=== PATIENT | female | born 1975 ===

== ENCOUNTER 2017-04-20 02:35 | Emergency (ER) | payer MEDICAID, OTHER ==
[2017-04-20 02:36] VITALS: BMI 20.3
[2017-04-20 02:47] VITALS: RESP 16
[2017-04-20] MEDS ORDERED: Sodium Chloride 0.9% 1,000 ML IV ONE ×2 (02:56→04:24)
[2017-04-20] MEDS ORDERED: Sodium Chloride 0.9% 1,000 ML ONE ×2 (03:08→04:25)
--- NOTE | 2017-04-20 03:15 | C.PDOC ---
Time Seen by Provider: 04/20/17 02:51 Chief Complaint (Nursing): GI Problem Past Medical History Vital Signs: Last Vital Signs Temp 98.7 F 04/20/17 02:43 Pulse 53 L 04/20/17 02:43 Resp 16 04/20/17 02:43 BP 107/69 04/20/17 02:43 Pulse Ox 97 04/20/17 02:43 - Medical History PMH: Denies: Diabetes, Hepatitis, HIV, HTN, Seizures, Sexually Transmitted Disease Surgical History: - [facility] DETOXIFICATION SERVICES FOR SUBSTANCE ABUSE TREATMENT (12/25/16) PRESSURE DRESSING APPLIC (10/25/13) REPAIR OB LACERATION NEC (02/07/98) VACUUM EXTRACT DEL NEC (02/07/98) Family History: States: Unknown Family Hx - Social History Hx Tobacco Use: Yes (1 pack a day) Hx Alcohol Use: No Hx Substance Use: Yes (heroin, oxy) - Immunization History Hx Tetanus Toxoid Vaccination: No Hx Influenza Vaccination: No Hx Pneumococcal Vaccination: No ED Course And Treatment O2 Sat by Pulse Oximetry: 97
--- NOTE | 2017-04-20 03:18 | C.PDOC ---
History Of Present Illness Patient is a 42 year old female who presents to the ER with a complaint of vomiting, diarrhea and abdominal pain for the past 3 days. Patient reports that today she feels weak and dehydrated, which prompted her to come in. Patient denies fever. Time Seen by Provider: 04/20/17 02:51 Chief Complaint (Nursing): GI Problem History Per: Patient History/Exam Limitations: no limitations Onset/Duration Of Symptoms: Days (3) Current Symptoms Are (Timing): Still Present Location Of Pain/Discomfort: Diffuse Radiation Of Pain To:: None Associated Symptoms: Vomiting, Diarrhea. denies: Fever Exacerbating Factors: None Alleviating Factors: None Recent travel outside of the [place]: No Abnormal Vaginal Bleeding: No Past Medical History Reviewed: Historical Data, Nursing Documentation, Vital Signs Vital Signs: Last Vital Signs Temp 98.3 F 04/20/17 05:32 Pulse 50 L 04/20/17 05:32 Resp 16 04/20/17 05:32 BP 129/78 04/20/17 05:32 Pulse Ox 100 04/20/17 05:32 - Medical History PMH: No Chronic Diseases Surgical History: - [facility] DETOXIFICATION SERVICES FOR SUBSTANCE ABUSE TREATMENT (12/25/16) PRESSURE DRESSING APPLIC (10/25/13) REPAIR OB LACERATION NEC (02/07/98) VACUUM EXTRACT DEL NEC (02/07/98) Family History: States: Unknown Family Hx - Social History Hx Tobacco Use: Yes (1 pack a day) Hx Alcohol Use: No Hx Substance Use: Yes (heroin, oxy) - Immunization History Hx Tetanus Toxoid Vaccination: No Hx Influenza Vaccination: No Hx Pneumococcal Vaccination: No Review Of Systems Constitutional: Negative for: Fever Gastrointestinal: Positive for: Vomiting, Abdominal Pain, Diarrhea Neurological: Positive for: Weakness Physical Exam - Physical Exam Appears: Non-toxic, No Acute Distress, Unkempt Skin: Normal Color, Warm, Dry Head: Atraumatic, Normacephalic Eye(s): bilateral: Normal Inspection, EOMI Oral Mucosa: Moist Neck: Normal ROM Chest: Symmetrical, No Tenderness Cardiovascular: Rhythm Regular, No Murmur Respiratory: Normal Breath Sounds, No Rales, No Rhonchi, No Wheezing Gastrointestinal/Abdominal: Soft, Tenderness (Generalized) Back: Normal Inspection, No Decreased ROM Extremity: Normal ROM, No Deformity, No Swelling Neurological/Psych: Oriented x3, Normal Speech, Other (No focal deficits) ED Course And Treatment - Laboratory Results Result Diagrams: 04/20/17 03:20 04/20/17 03:20 O2 Sat by Pulse Oximetry: 97 (Room air) Pulse Ox Interpretation: Normal Medical Decision Making Medical Decision Making: Impression: 42 year old female with abdominal pain, vomiting and diarrhea. Patient is unkempt, no alcohol on breath. Prior records show history of benzo and opiate abuse, possible withdrawal sx Plan: * Blood work * Urinalysis * Pepcid * Zofran * IV fluids progress: Labs reviewed showing mild hypokalemia, KCL ordered Pt reevaluated and states she continues to feel tired and nauseous. Additional IVF and Reglan ordered Patient resting comfortable, finished 2L IVNS and still does not feel like getting up to give urine Patient has no fever and stable vital signs,will discharge with Rx Disposition Counseled Patient/Family Regarding: Diagnosis, Need For Followup, Rx Given - Disposition Referrals: [facility] [Outside] [facility] [Outside] Disposition: HOME/ ROUTINE Disposition Time: 05:30 Condition: STABLE Additional Instructions: Drink fluids to prevent dehydration. Take Zofran as prescribed. Try low-fat diet with increase in fluids such as sport drink, gelatin. Try soup, rice, bread , crackers, cereal, bananas to help with diarrhea. Avoid high sugar foods or drinks (soda and juice), fatty foods. Prescriptions: Dicyclomine [Dicyclomine HCl] 10 mg PO QID #20 cap Ondansetron ODT [Zofran ODT] 1 odt PO BID PRN #6 odt PRN Reason: Nausea/Vomiting Instructions: Gastroenteritis (DC) - POA Present On Arrival: None - Clinical Impression Clinical Impression: Vomiting and diarrhea - Scribe Statement The provider has reviewed the documentation as recorded by the Scribe Kang Sanabria All medical record entries made by the Scribe were at my direction and personally dictated by me. I have reviewed the chart and agree that the record accurately reflects my personal performance of the history, physical exam, medical decision making, and the department course for this patient. I have also personally directed, reviewed, and agree with the discharge instructions and disposition.
[2017-04-20 03:31] LABS: CHLORIDE 98 mmol/L (98-107); POTASSIUM 3.2 mmol/L (3.6-5.2); SODIUM 143 mmol/L (132-148)
[2017-04-20 03:33] LABS: AST/SGOT 15 U/L (14-36); BILIRUBIN,TOTAL 0.9 mg/dL (0.2-1.3); CARBON DIOXIDE 29 mmol/L (22-30); GFR AFRICAN-AMERICAN > 60
[2017-04-20 03:34] LABS: ALB/GLOB RATIO 1.5 (1.0-2.1); ALKALINE PHOSPHATASE 60 U/L (38-126); ALT/SGPT 23 U/L (9-52); BLOOD UREA NITROGEN 25 mg/dL (7-17); CALCIUM 9.2 mg/dl (8.6-10.4); GLUCOSE,RANDOM 124 mg/dL (65-105); TOTAL PROTEIN 7.4 g/dL (6.3-8.3)
[2017-04-20 03:40] LABS: BASO # 0.1 K/uL (0.0-0.2); BASO % 0.9 % (0.0-2.0); EOS % 0.1 % (0.0-4.0); HEMATOCRIT 49.5 % (34.0-47.0); LYMPH # 1.2 K/uL (1.0-4.3); MEAN CELL VOLUME 91.7 fL (81.0-99.0); MEAN CORPUSCULAR HEMOGLOBIN 30.5 pg (27.0-31.0); MEAN CORPUSCULAR HGB CONC 33.3 g/dL (33.0-37.0); MEAN PLATELET VOLUME 8.9 fL (7.2-11.7); MONO # 0.7 K/uL (0.0-0.8); MONO % 7.8 % (0.0-10.0); WHITE BLOOD COUNT 8.4 K/uL (4.8-10.8)
[2017-04-20] MEDS ORDERED: Potassium Chloride 20 mEq ER Tab PO STA (03:43)
[2017-04-20] MEDS ORDERED: Potassium Chloride 20 mEq ER Tab PO ONE (04:11)
[2017-04-20 05:33] VITALS: BP 129/78; PULSE 50; TEMP 98.3
[2017-04-20 06:24] VITALS: O2SAT 97
== END 2017-04-20 05:36 | disposition home or self-care (01) ==
LOC: C.ER 02:35
DX: R19.7 Diarrhea, unspecified (principal); R11.10 Vomiting, unspecified
CPT/HCPCS: 80053; 83690; 85025; 96361; 96374; 96375; 99284; J1885; J2405; J2765; J7040

== ENCOUNTER 2017-06-30 19:57 | Emergency (ER) | payer OTHER ==
[2017-06-30 19:57] VITALS: BMI 20.3
[2017-06-30] MEDS ORDERED: Sodium Chloride 0.9% 1,000 ML IV ONE (20:47)
--- NOTE | 2017-06-30 20:59 | C.PDOC ---
History Of Present Illness A 42 y/o F c/o abdominal pain for the last 2 days. Pain is a constant, burning sensation to the epigastric area with associated nausea and vomiting. Reports she can not eat due to pain. Denies diarrhea, fever, chills, urinary symptoms, vaginal bleeding, discharge, or any other complaints. Patient took no medication for the pain. Time Seen by Provider: 06/30/17 20:42 Chief Complaint (Nursing): Fever History Per: Patient History/Exam Limitations: no limitations Onset/Duration Of Symptoms: Days (2), Persistent Current Symptoms Are (Timing): Still Present Severity: Mild Location Of Pain/Discomfort: Epigastric Radiation Of Pain To:: None Quality Of Discomfort: Burning Associated Symptoms: Nausea, Vomiting. denies: Diarrhea, Urinary Symptoms Recent travel outside of the [place]: No Additional History Per: Patient Abnormal Vaginal Bleeding: No Past Medical History Reviewed: Historical Data, Nursing Documentation, Vital Signs Vital Signs: Last Vital Signs Temp 98.9 F 06/30/17 23:26 Pulse 82 06/30/17 23:26 Resp 20 06/30/17 23:26 BP 122/77 06/30/17 23:26 Pulse Ox 100 07/01/17 00:37 - Medical History PMH: Denies: HIV, HTN, Seizures, Sexually Transmitted Disease Surgical History: - [facility] Procedures DETOXIFICATION SERVICES FOR SUBSTANCE ABUSE TREATMENT (12/25/16) PRESSURE DRESSING APPLIC (10/25/13) REPAIR OB LACERATION NEC (02/07/98) VACUUM EXTRACT DEL NEC (02/07/98) Family History: States: Unknown Family Hx - Social History Hx Tobacco Use: Yes (1 pack a day) Hx Alcohol Use: Yes Hx Substance Use: Yes (heroin, oxy) - Immunization History Hx Tetanus Toxoid Vaccination: No Hx Influenza Vaccination: No Hx Pneumococcal Vaccination: No Review Of Systems Except As Marked, All Systems Reviewed And Found Negative. Constitutional: Negative for: Fever, Chills Gastrointestinal: Positive for: Nausea, Vomiting, Abdominal Pain. Negative for : Diarrhea Genitourinary: Negative for: Dysuria, Frequency, Incontinence, Vaginal Discharge , Vaginal Bleeding Physical Exam - Physical Exam Appears: Non-toxic, In Acute Distress (Uncomfortable) Skin: Warm, Dry Head: Atraumatic, Normacephalic Oral Mucosa: Moist (Well hydrated) Cardiovascular: Rhythm Regular Respiratory: Normal Breath Sounds, No Accessory Muscle Use, No Rales, No Rhonchi , No Wheezing Gastrointestinal/Abdominal: Soft (Belly flat), Tenderness (Tenderness to the Epigastric area), Guarding, No Rebound Back: No CVA Tenderness Neurological/Psych: Oriented x3, Normal Speech, Normal Cognition ED Course And Treatment - Laboratory Results Result Diagrams: 06/30/17 21:11 06/30/17 21:11 Lab Interpretation: No Acute Changes O2 Sat by Pulse Oximetry: 100 (RA) Pulse Ox Interpretation: Normal - CT Scan/US CT abd/pel Other Rad Studies (CT/US): Read By Radiologist, Radiology Report Reviewed CT/US Interpretation: EXAM: CT Abdomen and Pelvis With Intravenous Contrast. CLINICAL HISTORY: 42 years old, female; Pain; Abdominal pain; Prior surgery; Surgery type: and tublegation;. Patient HX: 2--. TECHNIQUE: Axial computed tomography images of the abdomen and pelvis with intravenous contrast. This CT. exam was performed using one or more of the following dose reduction techniques: automated. exposure control, adjustment of the mA and/or kV according to patient size, and/or use of iterative. reconstruction technique. Coronal and sagittal reformatted images were created and reviewed. CONTRAST: 100 mL of [id number] administered intravenously. COMPARISON: No relevant prior studies available. FINDINGS: Lower thorax: No acute findings. ABDOMEN: Liver: Unremarkable. No mass. Gallbladder and bile ducts: No calcified stones. No ductal dilation. Pancreas: No ductal dilation. No mass. Spleen: No splenomegaly. Adrenals: No mass. Kidneys and ureters: No mass. No hydronephrosis. Stomach and bowel: No definite mural thickening. No obstruction. Appendix: No findings to suggest acute appendicitis. PELVIS: Bladder: Unremarkable. Reproductive: Unremarkable as visualized. ABDOMEN and PELVIS: Intraperitoneal space: No significant fluid collection. No free air. Bones/joints: No acute fracture. Soft tissues: Unremarkable. Vasculature: Unremarkable. No aneurysm. Lymph nodes: No pathologically enlarged lymph nodes. IMPRESSION: No definite acute intraabdominal abnormality. Progress Note: 10:15 Patient continues to c/o pain in the epigastrium unchanged after Pepcid and Protonix. CT and po ordered Reevaluation Time: 00:38 Reassessment Condition: Unchanged (but sleeping quietly.) Medical Decision Making Medical Decision Making: Impression: A 42 y/o F c/o abdominal pain for the last 2 days. Plans: * Blood work up * Pepcid * Protonix * IV fluids * UA * Reassess Disposition Counseled Patient/Family Regarding: Studies Performed, Diagnosis, Need For Followup, Rx Given - Disposition Referrals: [facility] [Outside] Disposition: HOME/ ROUTINE Disposition Time: 00:44 Condition: STABLE Additional Instructions: Take Pepcid twice a day and keep your diet bland. Prescriptions: Pantoprazole Sodium [Protonix] 40 mg PO DAILY #14 ect Instructions: Abdominal Pain (ED) Forms: [facility] (Namibian) - Clinical Impression Clinical Impression: Abdominal pain - Scribe Statement The provider has reviewed the documentation as recorded by the Scribe Kota anderson All medical record entries made by the Gutierrezibe were at my direction and personally dictated by me. I have reviewed the chart and agree that the record accurately reflects my personal performance of the history, physical exam, medical decision making, and the department course for this patient. I have also personally directed, reviewed, and agree with the discharge instructions and disposition.
[2017-06-30 21:16] LABS: BASO # 0.1 K/uL (0.0-0.2); BASO % 0.8 % (0.0-2.0); EOS % 0.1 % (0.0-4.0); HEMOGLOBIN 16.4 g/dL (11.0-16.0); LYMPH # 1.4 K/uL (1.0-4.3); LYMPH % 17.5 % (20.0-40.0); MEAN CELL VOLUME 92.5 fL (81.0-99.0); MEAN CORPUSCULAR HEMOGLOBIN 31.8 pg (27.0-31.0); MEAN CORPUSCULAR HGB CONC 34.3 g/dL (33.0-37.0); MEAN PLATELET VOLUME 8.3 fL (7.2-11.7); MONO # 0.5 K/uL (0.0-0.8); MONO % 5.9 % (0.0-10.0); NEUT # 5.9 K/uL (1.8-7.0); NEUT % 75.7 % (50.0-75.0); RBC 5.15 Mil/uL (3.80-5.20); RED CELL DISTRIBUTION WIDTH 14.1 % (11.5-14.5); WHITE BLOOD COUNT 7.7 K/uL (4.8-10.8)
[2017-06-30 21:24] LABS: SQUAMOUS EPITHIAL 4 /hpf (0-5); URINE BACTERIA OCC (<OCC); URINE BILIRUBIN NEGATIVE (NEGATIVE); URINE BLOOD NEGATIVE (NEGATIVE); URINE CLARITY Hazy (Clear); URINE COLOR Yellow (YELLOW); URINE GLUCOSE (UA) NORMAL (Normal); URINE LEUKOCYTE ESTERASE NEG Leu/uL (Negative); URINE NITRATE NEGATIVE (NEGATIVE); URINE PROTEIN 2+ mg/dL (NEGATIVE); URINE UROBILINOGEN NORMAL mg/dL (0.2-1.0)
[2017-06-30 21:28] LABS: ALBUMIN 4.4 g/dL (3.5-5.0)
[2017-06-30 21:31] LABS: ALB/GLOB RATIO 1.4 (1.0-2.1); ALT/SGPT 40 U/L (9-52); AST/SGOT 18 U/L (14-36); BLOOD UREA NITROGEN 15 mg/dL (7-17); CALCIUM 9.7 mg/dl (8.6-10.4); GFR AFRICAN-AMERICAN > 60; GFR NON-AFRICAN AMERICAN > 60; LIPASE 61 U/L (23-300)
[2017-06-30 21:32] LABS: BARBITURATES, UR NEGATIVE (NEGATIVE)
[2017-06-30 21:33] LABS: BENZODIAZEPINES, UR NEGATIVE (NEGATIVE)
[2017-06-30 21:36] LABS: OPIATES, UR NEGATIVE (NEGATIVE)
[2017-06-30] MEDS ORDERED: Iohexol 240 (50 ml) PO ONE (22:14)
[2017-06-30] MEDS ORDERED: Belladonna-Phenobarbital PO STA (22:14)
[2017-06-30 22:18] LABS: PHENCYCLIDINE, UR NEGATIVE (NEGATIVE)
[2017-06-30] MEDS ORDERED: Iodixanol 320 MG/ML 100 ML BOTTLE IV ONE (22:35)
[2017-06-30] MEDS ORDERED: Belladonna-Phenobarbital ONE (23:01)
[2017-06-30] MEDS ORDERED: Iohexol 240 (50 ml) ONE (23:01)
--- NOTE | 2017-07-01 00:35 | CT ---
EXAM: CT Abdomen and Pelvis With Intravenous Contrast CLINICAL HISTORY: 42 years old, female; Pain; Abdominal pain; Prior surgery; Surgery type: and tublegation; Patient HX: 2 TECHNIQUE: Axial computed tomography images of the abdomen and pelvis with intravenous contrast. This CT exam was performed using one or more of the following dose reduction techniques: automated exposure control, adjustment of the mA and/or kV according to patient size, and/or use of iterative reconstruction technique. Coronal and sagittal reformatted images were created and reviewed. CONTRAST: 100 mL of [id number] administered intravenously. COMPARISON: No relevant prior studies available. FINDINGS: Lower thorax: No acute findings. ABDOMEN: Liver: Unremarkable. No mass. Gallbladder and bile ducts: No calcified stones. No ductal dilation. Pancreas: No ductal dilation. No mass. Spleen: No splenomegaly. Adrenals: No mass. Kidneys and ureters: No mass. No hydronephrosis. Stomach and bowel: No definite mural thickening. No obstruction. Appendix: No findings to suggest acute appendicitis. PELVIS: Bladder: Unremarkable. Reproductive: Unremarkable as visualized. ABDOMEN and PELVIS: Intraperitoneal space: No significant fluid collection. No free air. Bones/joints: No acute fracture. Soft tissues: Unremarkable. Vasculature: Unremarkable. No aneurysm. Lymph nodes: No pathologically enlarged lymph nodes. IMPRESSION: No definite acute intraabdominal abnormality.
[2017-07-01 00:59] VITALS: BP 123/73; PULSE 85; RESP 16; TEMP 98.5; O2SAT 99
== END 2017-07-01 00:58 | disposition home or self-care (01) ==
LOC: C.ER 19:57
DX: R10.9 Unspecified abdominal pain (principal)
CPT/HCPCS: 74177; 80053; 80324; 80345; 80346; 80349; 80353; 80358; 80361; 81001; 83690; 83992; 84703; 85025; 96374; 96375; 99285; C9113; J7040; Q9966; Q9967

== ENCOUNTER 2017-07-20 10:28 | Emergency (ER) | payer OTHER ==
[2017-07-20 10:28] VITALS: BMI 20.3
[2017-07-20 10:57] VITALS: TEMP 98.6; O2SAT 100
[2017-07-20 11:39] LABS: BASO # 0.1 K/uL (0.0-0.2); BASO % 1.4 % (0.0-2.0); EOS # 0.1 K/uL (0.0-0.7); EOS % 1.1 % (0.0-4.0); HEMATOCRIT 39.6 % (34.0-47.0); LYMPH # 1.2 K/uL (1.0-4.3); LYMPH % 20.6 % (20.0-40.0); MEAN CELL VOLUME 92.7 fL (81.0-99.0); MEAN CORPUSCULAR HEMOGLOBIN 31.6 pg (27.0-31.0); MEAN CORPUSCULAR HGB CONC 34.1 g/dL (33.0-37.0); MEAN PLATELET VOLUME 7.6 fL (7.2-11.7); MONO # 0.2 K/uL (0.0-0.8); NRBC % 0.1 % (0.0-2.0); RED CELL DISTRIBUTION WIDTH 13.5 % (11.5-14.5); WHITE BLOOD COUNT 5.9 K/uL (4.8-10.8)
[2017-07-20 11:53] LABS: CHLORIDE 104 mmol/L (98-107); POTASSIUM 3.7 mmol/L (3.6-5.2); SODIUM 142 mmol/L (132-148)
[2017-07-20 11:55] LABS: BILIRUBIN,TOTAL 0.6 mg/dL (0.2-1.3); CARBON DIOXIDE 27 mmol/L (22-30); GFR AFRICAN-AMERICAN > 60
[2017-07-20 11:56] LABS: ALB/GLOB RATIO 1.2 (1.0-2.1); ALKALINE PHOSPHATASE 64 U/L (38-126); ALT/SGPT 28 U/L (9-52); AST/SGOT 17 U/L (14-36); BLOOD UREA NITROGEN 13 mg/dL (7-17); CALCIUM 9.3 mg/dl (8.6-10.4); GLUCOSE,RANDOM 95 mg/dL (65-105); TOTAL PROTEIN 6.2 g/dL (6.3-8.3)
[2017-07-20 11:57] LABS: ALCOHOL SERUM < 10 mg/dl (0-10)
[2017-07-20 12:08] LABS: RBC URINE 1 /hpf (0-3); URINE BILIRUBIN NEGATIVE (NEGATIVE); URINE BLOOD NEGATIVE (NEGATIVE); URINE COLOR Yellow (YELLOW); URINE GLUCOSE (UA) NORMAL (Normal); URINE KETONE NEGATIVE (NEGATIVE); URINE LEUKOCYTE ESTERASE NEG Leu/uL (Negative); URINE PROTEIN 1+ mg/dL (NEGATIVE); URINE UROBILINOGEN NORMAL mg/dL (0.2-1.0); WBC URINE 7 /hpf (0-5)
--- NOTE | 2017-07-20 12:11 | C.PDOC ---
History Of Present Illness Patient is a 42 y/o female presents to the ED requesting detox from heroin and opiates. Otherwise, denies any SI, HI, abdominal pain, nausea, vomiting, chest pain, shortness of breath, fever, or any other physical complaints at this time. Time Seen by Provider: 07/20/17 11:06 Chief Complaint (Nursing): Substance Abuse History Per: Patient History/Exam Limitations: no limitations Onset/Duration Of Symptoms: Gradual Current Symptoms Are (Timing): Still Present Suicide/Self Injury Attempted (Context): None Severity: None Pain Scale Rating Of: 0 Associated Symptoms: denies: Suicidal Thoughts, Suicidal Plan Involuntary Hold By: None Recent travel outside of the [place]: No Additional History Per: Patient Past Medical History Reviewed: Historical Data, Nursing Documentation, Vital Signs Vital Signs: Last Vital Signs Temp 98.6 F 07/20/17 10:55 Pulse 68 07/20/17 13:53 Resp 16 07/20/17 13:53 BP 115/79 07/20/17 13:53 Pulse Ox 100 07/20/17 14:31 - Medical History PMH: Denies: HIV, HTN, Seizures, Sexually Transmitted Disease Surgical History: - [facility] Procedures DETOXIFICATION SERVICES FOR SUBSTANCE ABUSE TREATMENT (12/25/16) PRESSURE DRESSING APPLIC (10/25/13) REPAIR OB LACERATION NEC (02/07/98) VACUUM EXTRACT DEL NEC (02/07/98) Family History: States: Unknown Family Hx - Social History Hx Tobacco Use: Yes (1 pack a day) Hx Alcohol Use: No Hx Substance Use: Yes (heroin, oxy) - Immunization History Hx Tetanus Toxoid Vaccination: No Hx Influenza Vaccination: No Hx Pneumococcal Vaccination: No Review Of Systems Except As Marked, All Systems Reviewed And Found Negative. Constitutional: Negative for: Fever, Chills Cardiovascular: Negative for: Chest Pain, Palpitations Respiratory: Negative for: Shortness of Breath Gastrointestinal: Negative for: Nausea, Vomiting, Abdominal Pain Neurological: Negative for: Headache, Dizziness Psych: Negative for: Suicidal ideation Physical Exam - Physical Exam Appears: Non-toxic, No Acute Distress, Unkempt Skin: Warm, Dry Head: Atraumatic, Normacephalic Eye(s): bilateral: PERRL, EOMI, right: Normal Inspection, left: Other (old ecchymosis around eye) Nose: Normal Oral Mucosa: Moist Neck: Normal ROM, Supple Chest: Symmetrical Cardiovascular: Rhythm Regular, No Murmur Respiratory: Normal Breath Sounds, No Rales, No Rhonchi, No Wheezing Gastrointestinal/Abdominal: Soft, No Tenderness, No Distention Extremity: Bilateral: Atraumatic, Normal ROM Neurological/Psych: Oriented x3, Normal Speech Gait: Steady ED Course And Treatment - Laboratory Results Result Diagrams: 07/20/17 11:26 07/20/17 11:26 Lab Interpretation: No Acute Changes O2 Sat by Pulse Oximetry: 100 (RA) Pulse Ox Interpretation: Normal Medical Decision Making Medical Decision Making: Impression: 42 y/o female requesting detox from heroin and opiates. Plan: * Blood work * UA * crisis evaluation Progress note: Labs ordered and reviewed with no acute findings. UDS positive opiates and cannabis. In my clinical judgment patient is medically cleared and stable for psychiatric admission. Patient remained well without signs of withdrawal or distress. habilitation worker evaluated patient and cased discussed with Dr Rivas. Patient does not meet admission criteria and can follow up outpatient. Patient given resources and list of suboxone providers. Disposition Counseled Patient/Family Regarding: Diagnosis, Need For Followup - Disposition Referrals: [facility] [Outside] Disposition: HOME/ ROUTINE Disposition Time: 14:30 Condition: STABLE Additional Instructions: [facility] at [address] [place] [address]. Please call [phone] Instructions: Narcotic Abuse (ED) Forms: [facility] (Arabic) - POA Present On Arrival: None - Clinical Impression Clinical Impression: Opiate dependence - PA / PRINCIPAL PROCESS ENGINEER / Resident Statement MD/DO has reviewed & agrees with the documentation as recorded. - Scribe Statement The provider has reviewed the documentation as recorded by the Gutierrezibe Court De La Cruz All medical record entries made by the Gutierrezibsocorro were at my direction and personally dictated by me. I have reviewed the chart and agree that the record accurately reflects my personal performance of the history, physical exam, medical decision making, and the department course for this patient. I have also personally directed, reviewed, and agree with the discharge instructions and disposition.
[2017-07-20 13:54] VITALS: BP 115/79; PULSE 68; RESP 16
== END 2017-07-20 14:42 | disposition home or self-care (01) ==
LOC: C.ER 10:28
DX: F11.20 Opioid dependence, uncomplicated (principal)